=== PATIENT | female | born 1940 | race Caucasian/White ===

== ENCOUNTER 2019-03-27 19:45 | Emergency (ER) | payer MEDICARE ==
[~2019-03-27] VITALS: Ht 154.9 cm; Wt 72.7 kg
[2019-03-27] MEDS ORDERED: MORPHINE SULFATE 4 MG/ML, 1ML IVPush PRN (20:00)
[2019-03-27] MEDS ORDERED: SODIUM CHLORIDE FLUSH 10ML SYR IVF ONE (20:00)
[2019-03-27] MEDS ORDERED: MORPHINE SULFATE 4 MG/ML, 1ML ONE (20:02)
--- NOTE | 2019-03-27 20:09 | NUR ---
glf, no loc, right shoulder pain and inability to move. pain 10/10 with movement. pt medicated per emar
--- NOTE | 2019-03-27 20:10 | NUR ---
pt to rad
--- NOTE | 2019-03-27 20:35 | NUR ---
PT RETURNED FROM RAD
[2019-03-27 20:41] VITALS: BP 125/68
== END 2019-03-27 21:14 | disposition home or self-care (01) ==
LOC: ED 21:08
DX: S42.254A Nondisplaced fracture of greater tuberosity of right humerus, initial encounter for closed fracture (principal); M54.9 Dorsalgia, unspecified; G89.29 Other chronic pain; W18.39XA Other fall on same level, initial encounter; Y93.89 Activity, other specified; Y92.009 Unspecified place in unspecified non-institutional (private) residence as the place of occurrence of the external cause; Y99.8 Other external cause status
CPT/HCPCS: 73030; 73060; 96374; 99283; J2270

== ENCOUNTER 2020-08-10 07:24 | Emergency (ER) | payer MEDICARE ==
[~2020-08-10] VITALS: Ht 154.9 cm; Wt 79.2 kg
--- NOTE | 2020-08-10 07:40 | NUR ---
pt to ct
--- NOTE | 2020-08-10 07:54 | NUR ---
pt back from CT
[2020-08-10 08:18] LABS: BASOPHILS % (AUTO) 1 % (0-1); EOSINOPHILS % (AUTO) 4 % (1-7); LYMPHOCYTES % (AUTO) 19 % (22-44); MEAN CORPUSCULAR HEMOGLOBIN 30.9 pg (27.0-34.8); MEAN CORPUSCULAR HGB CONC 34.3 g/dL (32.4-35.8); MEAN PLATELET VOLUME 7.5 fL (7.4-10.4); MONOCYTES % (AUTO) 9 % (2-9); NEUTROPHILS % (AUTO) 67 % (42-75); PLATELET COUNT 237 x10^3/uL (130-400); RED CELL DISTRIBUTION WIDTH 13.6 % (9.6-15.2)
[2020-08-10 08:32] LABS: MD NO
--- NOTE | 2020-08-10 09:05 | NUR ---
PT PRESENTS TO ED WITH C/O RIGHT SIDED FACIAL DROOP NOTED UPON AWAKENING THIS AM, PT STATES SHE NOTED IT WHEN SHE FIRST SAW HERSELF IN [place] TODAY, HOWEVER STATES THAT HER RIGHT EYE FELT DRY YESTERDAY. PT A&OX4, NEURO INTACT, BILATERAL GRASP EQUAL, NO DRIFT, ALL EXTREMITY STRENGTH 5/5. PUPILS EQUAL, ROUND AND REACTIVE. CALL LIGHT IN REACH. CT DONE. MD GOODSON AT BEDSIDE TO UPDATE PT WITH RESULTS AND POC.
--- NOTE | 2020-08-10 10:28 | NUR ---
CARE FOR DC ONLY PROVIDED. PT IN NO ACUTE DISTRESS. NO IV TO DC. REVIEWED DC INSTRUCTIONS WITH PT. UNDERSTANDING VERBALIZED.
[2020-08-10 10:29] VITALS: BP 125/83
== END 2020-08-10 10:31 | disposition home or self-care (01) ==
LOC: ED 08:35
DX: G51.0 Bell's palsy (principal); R94.31 Abnormal electrocardiogram [ECG] [EKG]; R53.1 Weakness
CPT/HCPCS: 36415; 70450; 80047; 85025; 93005; 99285